=== PATIENT | female | born 1985 | race American Indian/Alaskan Native ===

== ENCOUNTER → 2024-01-31 07:18 | Outpatient (REF) | payer BC, SELFPAY ==
[2024-01-31 08:25] LABS: % Basophils 0.9 % (0-2); % Eosinophils 4.3 % (0-6); % Immature Granulocytes 0.2 % (0-0.5); % Lymphocytes 40.1 % (20.5-51.1); % Monocytes 9.5 % (1.7-9.3); Absolute Eosinophils 0.2 10^3/uL (0-0.7); Absolute Lymphocytes 1.8 10^3/uL (1.2-3.4); Absolute Monocytes 0.4 10^3/uL (0.1-0.6); Hematocrit 39.7 % (37.0-47.0); Hemoglobin 13.2 g/dL (12.0-16.0); Mean Corp Hgb Conc. 33.2 g/dL (33.0-37.0); Mean Corpuscular Hgb 30.1 pg (27.0-31.0); Mean Corpuscular Volume 90.4 fL (81.0-99.0); Mean Platelet Volume 10.3 fL (7.4-10.4); Nucleated Red Blood Cells % 0 %; Platelet Count 278 10^3/uL (130-400); Red Blood Cell Count 4.39 10^6/uL (4.20-5.40); Red Cell Dist. Width 13.1 % (11.5-14.5); White Blood Cell Count 4.4 10^3/uL (4.8-10.8)
[2024-01-31 08:34] LABS: Urine Albumin Negative (Neg - Trace); Urine Bilirubin Negative (Negative); Urine Character Clear (Clear); Urine Color Yellow; Urine Glucose Negative (Negative); Urine Ketone Negative (Negative); Urine Leukocyte Negative (Negative); Urine Nitrite Negative (Negative); Urine Occult Blood Negative (Negative); Urine Urobilinogen Negative (Neg - 1+)
[2024-01-31 08:50] LABS: ALT (SGPT) 14 U/L (0-35); AST (SGOT) 28 U/L (14-36); Albumin 4.8 g/dl (3.5-5.0); Alkaline Phosphatase 55 U/L (38-126); Blood Urea Nitrogen 15 mg/dl (7-17); Calcium 10.2 mg/dl (8.4-10.2); Carbon Dioxide 23 mmol/L (22-30); Chloride 105 mmol/L (98-107); Glucose 86 mg/dl (70-99); HDL Cholesterol 59 mg/dl; Iron 148 ug/dl (37-170); LDL Cholesterol, Calculated 101 mg/dl; Potassium 4.8 mmol/L (3.5-5.1); Sodium 134 mmol/L (135-145); Total Bilirubin 0.6 mg/dl (0.2-1.3); Total Cholesterol 180 mg/dl (50-199); Total Protein 7.9 g/dl (6.3-8.2); Triglyceride 100 mg/dl (10-149); Very Low Density Lipoprotein 20 mg/dl (0-30); eGFR > 60.00
[2024-01-31 08:59] LABS: Percent Saturation 36 % (20-50); Total Iron Binding Capacity 403 ug/dl (265-497)
[2024-01-31 09:01] LABS: Vitamin D, 25-OH*** 39.9 ng/mL (30-80)
[2024-01-31 09:14] LABS: TSH 7.66 uIU/ml (0.47-4.68)
[2024-01-31 09:18] LABS: Ferritin 12.3 ng/ml (6.24-137)
[2024-01-31 09:34] LABS: Vitamin B12 > 1000 pg/ml (239-931)
[2024-01-31 10:20] LABS: Folate 7.1 ng/ml (2.76-20)
[2024-01-31 10:44] LABS: Glycohemoglobin (HgbA1c) 5.2 % (4.0-5.6)
== END ==
LOC: RAD 07:18
PROVIDERS: ATTENDING PHYSICIAN Family Medicine
DX: R10.2 Pelvic and perineal pain (principal); D25.9 Leiomyoma of uterus, unspecified
CPT/HCPCS: 36415; 76830; 76856; 80053; 80061; 81003; 82306; 82607; 82728; 82746; 83036; 83540; 83550; 84443; 85025

== ENCOUNTER → 2024-10-22 18:03 | Outpatient (REF) | payer BC, SELFPAY | LOC: CPAP 18:03 | PROVIDERS: ATTENDING PHYSICIAN Obstetrics & Gynecology; FAMILY PHYSICIAN Family Medicine | DX: Z01.419 Encounter for gynecological examination (general) (routine) without abnormal findings (principal); Z11.51 Encounter for screening for human papillomavirus (HPV) | CPT/HCPCS: 87624 ==

== ENCOUNTER → 2025-04-17 10:20 | Outpatient (REF) | payer BC, SELFPAY ==
[2025-04-17 10:57] LABS: Hematocrit 39.9 % (37.0-47.0); Hemoglobin 12.7 g/dL (12.0-16.0); Mean Corp Hgb Conc. 31.8 g/dL (33.0-37.0); Mean Corpuscular Volume 93.4 fL (81.0-99.0); Nucleated Red Blood Cells % 0 %; Platelet Count 287 10^3/uL (130-400); Red Cell Dist. Width 13.2 % (11.5-14.5)
[2025-04-17 11:37] LABS: Blood Urea Nitrogen 14 mg/dl (7-17); Glucose 87 mg/dl (70-99)
[2025-04-17 11:38] LABS: ALT (SGPT) 15 U/L (0-35); AST (SGOT) 23 U/L (14-36); Albumin 4.5 g/dl (3.5-5.0); Alkaline Phosphatase 55 U/L (38-126); Calcium 9.8 mg/dl (8.4-10.2); Carbon Dioxide 25 mmol/L (22-30); Chloride 107 mmol/L (98-107); HDL Cholesterol 71 mg/dl; LDL Cholesterol, Calculated 85 mg/dl; Potassium 4.6 mmol/L (3.5-5.1); Sodium 137 mmol/L (135-145); Total Protein 7.5 g/dl (6.3-8.2); Very Low Density Lipoprotein 15 mg/dl (0-30); eGFR > 60.00
[2025-04-17 11:52] LABS: Vitamin D, 25-OH*** 22.5 ng/mL (30-80)
[2025-04-17 11:56] LABS: Glycohemoglobin (HgbA1c) 5.3 % (4.0-5.6)
[2025-04-17 12:05] LABS: TSH 6.04 uIU/ml (0.47-4.68)
[2025-04-17 12:26] LABS: Vitamin B12 214 pg/ml (239-931)
== END ==
LOC: RAD 10:20
PROVIDERS: ATTENDING PHYSICIAN Family Medicine
DX: M25.552 Pain in left hip (principal); Z00.00 Encounter for general adult medical examination without abnormal findings; R73.01 Impaired fasting glucose; E53.8 Deficiency of other specified B group vitamins; Z78.9 Other specified health status
CPT/HCPCS: 36415; 73502; 80053; 80061; 82306; 82607; 83036; 84443; 85025